=== PATIENT | male | born 1990 | race Caucasian/White ===

== ENCOUNTER → 2018-02-28 | Outpatient (CLI) | payer OTHER ==
--- NOTE | 2018-02-28 10:42 | DIAGNOSTIC IMAGING REPORT ---
RIGHT HAND 3 VIEWS HISTORY: RIGHT HAND PAIN COMPARISON: None. FINDINGS: Mild flexion deformity at the PIP joint of the right fifth finger. However, no fracture or dislocation identified within the right hand. Soft tissues are unremarkable. No radiopaque foreign bodies. IMPRESSION: 1. Mild flexion deformity at the PIP joint of the right fifth finger. 2. No fracture or dislocation within the right hand. Electronically signed by: Cuong Ross M.D. 02/28/2018 10:41 AM Dictated Date/Time: 02/28/2018 10:39 AM
== END | disposition home or self-care (01) ==
LOC: C.RDSM 10:25
PROVIDERS: ATTEND Family Medicine
DX: Q89.9 Congenital malformation, unspecified (principal)